=== PATIENT | female | born 1965 | race Caucasian/White ===

== ENCOUNTER 2019-10-04 15:06 | Outpatient (REF) | payer SELFPAY ==
[2019-10-04 16:31] LABS: Estmated Average Glucose 97
[2019-10-04 19:25] LABS: Chol HDL Ratio 3.35 mg/dL (0.0-4.40); Cholesterol 211 mg/dL (0-200); Glucose 81 mg/dL (65-115); HDL Cholesterol 63 mg/dL (60-100); LDL Cholesterol Calculated 120 mg/dL (50-129); Triglycerides 141 mg/dL (0-150)
== END 2019-10-04 15:07 | disposition home or self-care (01) ==
LOC: LAB 15:06
PROVIDERS: Family Provider Nurse Practitioner; Visit Provider Dermatology
DX: Z13.9 Encounter for screening, unspecified (principal)
CPT/HCPCS: 80061; 82947; 83036

== ENCOUNTER → 2019-12-04 12:38 | Outpatient (BNVA) | payer OTHER, SELFPAY | PROVIDERS: Family Provider Nurse Practitioner; Visit Provider Nurse Practitioner | DX: E06.3 Autoimmune thyroiditis (principal); M25.50 Pain in unspecified joint; R53.83 Other fatigue; M79.671 Pain in right foot | CPT/HCPCS: 73630; 80053; 85025; 85651; 86140; 88175 ==

== ENCOUNTER → 2020-07-15 11:22 | Outpatient (BNVA) | payer OTHER, SELFPAY | PROVIDERS: Family Provider Nurse Practitioner; PCP Dermatology; Visit Provider Nurse Practitioner | DX: R19.7 Diarrhea, unspecified (principal) | CPT/HCPCS: 87506 ==

== ENCOUNTER → 2020-10-29 08:04 | Outpatient (BNVA) | payer SELFPAY | PROVIDERS: Family Provider Nurse Practitioner; PCP Nurse Practitioner | DX: Z01.89 Encounter for other specified special examinations (principal) ==

== ENCOUNTER → 2021-04-29 08:22 | Outpatient (BNVA) | payer SELFPAY | PROVIDERS: Family Provider Nurse Practitioner; Visit Provider Dermatology | DX: Z01.89 Encounter for other specified special examinations (principal) ==

== ENCOUNTER 2021-06-11 13:52 | Outpatient (CLI) | payer OTHER, SELFPAY ==
--- NOTE | 2021-06-11 14:30 | MM_ITS ---
WS: [id number] BILATERAL DIGITAL SCREENING MAMMOGRAPHY WITH CAD CLINICAL INFORMATION: Z12.31 - Encounter for screening mammogram for malignant ... HISTORY: Screening mammogram. No current complaints. COMPARISON: TECHNIQUE: Bilateral CC and MLO views. FINDINGS: Scattered fibroglandular densities bilaterally. Prior breast reduction with architectural distortion. Stable 1.5 cm ovoid nodule upper outer right breast. Stable ovoid isodense nodule lower inner right breast measuring 7 mm. Stable ovoid nodule central left breast unchanged since 2015. A few benign brandon cifications. No suspicious focal mass, asymmetry, calcifications, or architectural distortion. No alden dence of malignancy. MM/[place] [id number] IMPRESSION: BI-RADS: 2-Benign FOLLOW UP: 1 Year Follow-up Recommend return to annual screening mammography.
== END 2021-06-11 13:53 | disposition home or self-care (01) ==
LOC: RADSHAW 13:53
PROVIDERS: PCP Nurse Practitioner; Visit Provider Nurse Practitioner Family
DX: Z12.31 Encounter for screening mammogram for malignant neoplasm of breast (principal)
CPT/HCPCS: 77067

== ENCOUNTER → 2021-06-26 11:50 | Outpatient (BNVA) | payer OTHER, SELFPAY | PROVIDERS: PCP Nurse Practitioner; Visit Provider Nurse Practitioner Family | DX: E03.8 Other specified hypothyroidism (principal); E06.3 Autoimmune thyroiditis; R53.83 Other fatigue | CPT/HCPCS: 86664; 86665 ==

== ENCOUNTER → 2021-12-12 08:43 | Outpatient (BNVA) | payer OTHER, SELFPAY | PROVIDERS: PCP Nurse Practitioner; Visit Provider Nurse Practitioner Family | DX: R09.81 Nasal congestion (principal); J06.9 Acute upper respiratory infection, unspecified | CPT/HCPCS: 87400 ==

== ENCOUNTER 2022-07-06 14:28 | Outpatient (CLI) | payer OTHER, SELFPAY ==
--- NOTE | 2022-07-06 14:35 | MM_ITS ---
WS: [id number] BILATERAL SCREENING DIGITAL TOMOSYNTHESIS MAMMOGRAM WITH CAD HISTORY: Screening exam. COMPARISON: 06/11/2021, 05/26/2019 Bilateral CC and MLO views with tomosynthesis and synthetic mammography submitted. Computer aided det ection analyzed. Breast composition: There are scattered areas of fibroglandular density. No suspicious masses, microc alcifications or architectural distortion. Bilateral breast nodules. The largest nodule upper-outer q uadrant of the RIGHT breast measures 13 mm. Benign calcification 12:00 LEFT breast. MM/[place] [id number] IMPRESSION: BI-RADS: 2-Benign FOLLOW UP: 1 Year Follow-up
== END 2022-07-06 14:29 | disposition home or self-care (01) ==
LOC: RAD 14:30
PROVIDERS: PCP Nurse Practitioner; Visit Provider Nurse Practitioner
DX: Z12.31 Encounter for screening mammogram for malignant neoplasm of breast (principal)
CPT/HCPCS: 77063; 77067

== ENCOUNTER → 2022-09-14 08:05 | Outpatient (BNVA) | payer OTHER, SELFPAY | PROVIDERS: PCP Nurse Practitioner; Visit Provider Nurse Practitioner | DX: Z13.6 Encounter for screening for cardiovascular disorders (principal) | CPT/HCPCS: 80061; 82947; 83036 ==

== ENCOUNTER → 2022-10-20 08:59 | Outpatient (BNVA) | payer OTHER, SELFPAY | PROVIDERS: PCP Nurse Practitioner; Visit Provider Dermatology | DX: Z01.89 Encounter for other specified special examinations (principal) ==

== ENCOUNTER → 2023-01-19 10:17 | Outpatient (BNVA) | payer OTHER, SELFPAY | PROVIDERS: PCP Nurse Practitioner; Referring Provider Nurse Practitioner; Visit Provider Dermatology | DX: Z01.89 Encounter for other specified special examinations (principal) ==

== ENCOUNTER → 2023-04-01 09:39 | Outpatient (BNVA) | payer OTHER, SELFPAY | PROVIDERS: PCP Nurse Practitioner; Visit Provider Nurse Practitioner Family | DX: G89.29 Other chronic pain (principal); R10.9 Unspecified abdominal pain; R10.819 Abdominal tenderness, unspecified site | CPT/HCPCS: 74018; 80053; 85025 ==

== ENCOUNTER 2023-04-07 07:14 | Outpatient (CLI) | payer OTHER, SELFPAY ==
--- NOTE | 2023-04-07 07:30 | US_ITS ---
WS: [email or web address] RIGHT UPPER QUADRANT ULTRASOUND HISTORY: R10.11 - Right upper quadrant pain COMPARISON: None available. Liver: 15.0 cm in length. Normal size liver and echogenicity. No bile duct dilatation or mass. Portal Vein: Normal hepatopetal flow with monophasic waveform. Gallbladder: Normally distended gallbladder with no stones or wall thickening. CBD: 0.4 cm Pancreas: Normal size and echogenicity. Right kidney: 9.1 cm in length. Normal size and echogenicity. No hydronephrosis or mass. Aorta and IVC: Unremarkable abdominal aorta and IVC. No ascites. IMPRESSION: Normal RIGHT upper quadrant ultrasound.
== END 2023-04-07 07:15 | disposition home or self-care (01) ==
PROVIDERS: PCP Nurse Practitioner; Visit Provider Nurse Practitioner Family
DX: R10.11 Right upper quadrant pain (principal)
CPT/HCPCS: 76700; 76705

== ENCOUNTER → 2023-04-20 07:34 | Outpatient (BNVA) | payer SELFPAY | PROVIDERS: PCP Nurse Practitioner; Visit Provider Dermatology | DX: Z01.89 Encounter for other specified special examinations (principal) ==

== ENCOUNTER 2023-07-20 11:59 | Outpatient (CLI) | payer OTHER, SELFPAY ==
--- NOTE | 2023-07-20 12:00 | MM_ITS ---
WS: [email or web address] BILATERAL SCREENING DIGITAL TOMOSYNTHESIS MAMMOGRAM WITH CAD HISTORY: Z12.39 - Encounter for other screening for malignant neop... COMPARISON: 06/18/2016, 05/28/2017, 07/06/2022 and 06/11/2021 Bilateral CC and MLO views with tomosynthesis and synthetic mammography submitted. Computer aided det ection analyzed. Breast composition: There are scattered areas of fibroglandular density. No suspicious masses, microc alcifications or architectural distortion. Bilateral breast masses are reidentified. These have been present since at least 2015. No increase in size. Benign calcifications in each breast. IMPRESSION: MM/[place] [id number] BI-RADS: 2-Benign FOLLOW UP: 1 Year Follow-up
== END 2023-07-20 12:00 | disposition home or self-care (01) ==
LOC: MOBLMAM 12:01
PROVIDERS: PCP Nurse Practitioner Family; Visit Provider Nurse Practitioner Family
DX: Z12.31 Encounter for screening mammogram for malignant neoplasm of breast (principal)
CPT/HCPCS: 77063; 77067

== ENCOUNTER → 2024-06-15 13:26 | Outpatient (BNVA) | payer SELFPAY | PROVIDERS: PCP Nurse Practitioner Family; Visit Provider Nurse Practitioner Family | DX: N39.0 Urinary tract infection, site not specified (principal) | CPT/HCPCS: 81000; 87077; 87086; 87184 ==

== ENCOUNTER 2024-07-27 09:33 | Outpatient (CLI) | payer OTHER, SELFPAY ==
--- NOTE | 2024-07-27 09:40 | MM_ITS ---
WS: [email or web address] BILATERAL SCREENING DIGITAL TOMOSYNTHESIS MAMMOGRAM WITH CAD HISTORY: Z12.39 - Encounter for other screening for malignant neop... COMPARISON: 07/20/2023, 07/06/2022, 06/11/2021 Bilateral CC and MLO views with tomosynthesis and synthetic mammography submitted. Computer aided det ection analyzed. Breast composition: There are scattered areas of fibroglandular density. No suspicious masses, microc alcifications or architectural distortion. Bilateral stable breast masses and calcifications. MM/MM scr [place] tomosynthesis [id number] IMPRESSION: BI-RADS: 2 - Benign. FOLLOW UP: 1 Year Follow-up
== END 2024-07-27 09:34 | disposition home or self-care (01) ==
LOC: MOBLMAM 09:33
PROVIDERS: PCP Nurse Practitioner Family; Visit Provider Nurse Practitioner Family
DX: Z12.31 Encounter for screening mammogram for malignant neoplasm of breast (principal); R92.323 Mammographic fibroglandular density, bilateral breasts; R92.1 Mammographic calcification found on diagnostic imaging of breast
CPT/HCPCS: 77063; 77067

== ENCOUNTER → 2024-11-01 13:51 | Outpatient (BNVA) | payer OTHER, SELFPAY | PROVIDERS: PCP Nurse Practitioner Family; Visit Provider Nurse Practitioner Family | DX: M79.672 Pain in left foot (principal); M25.572 Pain in left ankle and joints of left foot | CPT/HCPCS: 73610; 73630 ==

== ENCOUNTER → 2025-03-19 08:58 | Outpatient (BNVA) | payer OTHER, SELFPAY | PROVIDERS: PCP Nurse Practitioner Family; Visit Provider Nurse Practitioner | DX: R30.0 Dysuria (principal) | CPT/HCPCS: 81003; 87086 ==

== ENCOUNTER 2025-07-31 08:51 | Outpatient (CLI) | payer OTHER, SELFPAY ==
--- NOTE | 2025-07-31 09:40 | MM_ITS ---
WS: [email or web address] BILATERAL SCREENING DIGITAL TOMOSYNTHESIS MAMMOGRAM WITH CAD HISTORY: Z12.39 - Encounter for other screening for malignant neop... COMPARISON: 05/09/2018, 05/26/2019, 07/27/2024, 07/20/2023, 06/11/2021 Bilateral CC and MLO views with tomosynthesis and synthetic mammography submitted. Computer aided detection analyzed. Breast composition: There are scattered areas of fibroglandular density. No suspicious masses, microcalcifications or architectural distortion. Bilateral breast masses are reidentified. There are a few benign calcifications in each breast. Overall stable for multiple prior years. MM/MM scr [place] tomosynthesis [id number] IMPRESSION: BI-RADS: 2 - Benign. FOLLOW UP: 1 Year Follow-up
== END 2025-07-31 08:52 | disposition home or self-care (01) ==
LOC: MOBLMAM 08:55
PROVIDERS: PCP Nurse Practitioner Family; Visit Provider Nurse Practitioner Family
DX: Z12.31 Encounter for screening mammogram for malignant neoplasm of breast (principal); R92.323 Mammographic fibroglandular density, bilateral breasts; R92.1 Mammographic calcification found on diagnostic imaging of breast; N63.20 Unspecified lump in the left breast, unspecified quadrant; N63.10 Unspecified lump in the right breast, unspecified quadrant
CPT/HCPCS: 77063; 77067